=== PATIENT | male | born 1975 | race Caucasian/White ===

== ENCOUNTER → 2018-09-27 | Outpatient (CLI) | payer BC ==
[~2018-09-27] MED LIST: BENICAR20 MG PO; PROTONIX40 M2 PO
--- NOTE | 2018-10-02 08:47 | 24HR ---
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 The study duration was 24 hours and the technical quality was good. Predominant rhythm sinus rhythm at an average heart rate of 64 bpm, range 31-121 bpm 2. Occasional isolated atrial premature complexes. No atrial fibrillation or atrial flutter. No heart block. No episodes of paroxysmal supraventricular tachycardia. 3. Rare, isolated premature ventricular complexes. No episodes of ventricular tachycardia. Ventricular ectopy represented less than 1% of the total QRS complexes. 4. Patient activated events corresponded to channel dropout and inability to assess rhythm during symptoms. A significant rhythm abnormality was probably absent Electronically Signed On 10-02-2018 8:46:51 CDT by Darius Alvarez [email or web address] ��������������������������������������������� <ELECTRONICALLY SIGNED> ���������������������������������������� By: Darius Alvarez MD, [facility] ��������������������������������������������� 10/02/18 0846 4 Darius Alvarez MD, [facility] /EPI
== END ==
LOC: CV 13:49
DX: R00.2 Palpitations (principal)